=== PATIENT | female | born 1985 | race Caucasian/White ===

== ENCOUNTER 2017-03-28 06:09 | Inpatient (IN) | payer BC, OTHER ==
[~2017-03-28 06:09] MED LIST: Acetaminophen 500 MG TAB PO PRN; Carboprost 250 MCG/ML AMP IM PRN; Ibuprofen 800 MG TAB PO PRN; LR / Pitocin 40 units/1000 ml 1,000 ML IV PRN; LR 500 ML/Oxytocin 10 units 500 ML IV SCH; Lidocaine 1% (PF) 30 ML VIAL SC PRN; Misoprostol 200 MCG TAB PR PRN; Ondansetron HCl/PF 4 MG/2 ML Vial IVP PRN; Promethazine HCl 25 MG/ML VIAL IM PRN
[2017-03-28 06:47] VITALS: BMI 35.9
[2017-03-28] MEDS: Lactated Ringer's 1,000 ML IV SCH ×3 (06:55→08:53)
[2017-03-28 07:17] LABS: Hematocrit 32.6 % (36.0-47.0); Mean Platelet Volume 7.9 fL (7.4-10.4); Red Blood Cell (RBC) Count 4.27 mill/uL (4.20-5.40); White Blood Cell (WBC) Count 5.7 thou/uL (4.8-10.8)
[2017-03-28] MEDS ORDERED: Fentanyl 4 mcg/Marc 0.1% Cadd 100 ML ONE (07:33)
[2017-03-28] MEDS ORDERED: Ondansetron HCl/PF 4 MG/2 ML Vial IVP PRN (08:22)
[2017-03-28] MEDS ORDERED: Promethazine HCl 25 MG/ML VIAL IM PRN (08:22)
[2017-03-28] MEDS ORDERED: Naloxone HCl 0.4 mg/ml Vial IVP PRN ×2 (08:22)
[2017-03-28] MEDS ORDERED: Lactated Ringer's 500 ML IV PRN (08:22)
[2017-03-28] MEDS ORDERED: Acetaminophen 325 MG TAB PO PRN (08:22)
[2017-03-28] MEDS ORDERED: diphenhydrAMINE 50 MG/ML VIAL IVP PRN (08:22)
[2017-03-28] MEDS ORDERED: Eucerin (Mineral Oil/Petrolatum,White) 30 gm Jar TOP PRN (08:22)
[2017-03-28] MEDS ORDERED: ePHEDrine/0.9% NaCl/PF SYRINGE 50 mg/10 ml SLOW IVP PRN (08:22)
[2017-03-28] MEDS ORDERED: Communication Order-Pharmacy FS SCH (08:30)
[2017-03-28] MEDS ORDERED: Fentanyl 4mcg/Marcaine 0.1% Cassette 100 ML EPIDURAL SCH (08:30)
--- NOTE | 2017-03-28 12:16 | PDOC.OPDEL ---
OB Operative/Delivery Note Delivery Dr/Surgeon: Lalo Pre-Delivery Diagnosis: medically indicated induction Procedure/Post Delivery Dx: spontaneous vaginal delivery Anesthesia: epidural - Findings A Weight: 8 lb 11 oz - 1 min: 8 - 5 min: 9 - Additional Findings/Plan Placenta delivered: spontaneous Repaired Obstetrical Laceration: 2nd degree Estimated blood loss: 250ml Post delivery plan: routine recovery
[2017-03-28] MEDS ORDERED: Bisacodyl 10 MG SUPP PR PRN (12:17)
[2017-03-28] MEDS ORDERED: Lanolin Ointment 7 GM TUBE TOP PRN (12:17)
[2017-03-28] MEDS ORDERED: traMADol HCl 50 MG TAB PO PRN (12:17)
[2017-03-28] MEDS ORDERED: Milk Of Magnesia 30 ML UDCUP PO PRN (12:17)
[2017-03-28] MEDS ORDERED: Adacel (T-DAP) 0.5 ML VIAL IM ONE (12:17)
[2017-03-28] MEDS ORDERED: Benzocaine/Menthol 20-0.5% 60 ML CAN TOP PRN (12:17)
[2017-03-28] MEDS ORDERED: diphenhydrAMINE 25 MG CAP PO PRN (12:17)
[2017-03-28] MEDS ORDERED: Preparation H Ointment 28 GM TUBE PR PRN (12:17)
[2017-03-28] MEDS ORDERED: LR / Pitocin 40 units/1000 ml 1,000 ML IV SCH (12:30)
[2017-03-28] MEDS: Ibuprofen 800 MG TAB PO SCH ×2 (14:24→20:38)
[2017-03-28] MEDS ORDERED: Bupivacaine 0.25% HCL 30 ML VIAL ONE (15:39)
[2017-03-28] MEDS: HYDROcodone/Acetaminophen 5/325 mg Tablet PO PRN (16:55)
[2017-03-28] MEDS: Ferrous Sulfate 325 MG TAB PO SCH (17:38)
[2017-03-28] MEDS: Docusate Calcium (SURFAK) 240 MG CAP PO SCH (20:38)
[2017-03-29] MEDS: HYDROcodone/Acetaminophen 5/325 mg Tablet PO PRN ×3 (05:11→21:31)
[2017-03-29] MEDS: Ibuprofen 800 MG TAB PO SCH ×3 (05:11→21:18)
--- NOTE | 2017-03-29 07:57 | PDOC.PP ---
Post Progress Note Post Day #: 1 PO intake tolerated: yes Flatus: yes Ambulation: yes Vital Signs (12 hours) Temp Pulse Resp BP 03/29/17 04:30 98.4 F 81 18 100/56 L 03/29/17 04:00 97.6 F 80 18 03/29/17 00:00 97.6 F 80 18 03/28/17 22:06 97.6 F 84 18 98/56 L 03/28/17 20:00 97.6 F 84 18 Weight Weight 190 lb Result Diagrams: 03/28/17 06:55 03/28/17 06:55 Additional Labs: Post Labs Hep Bs Antigen Non-Reactive S/CO (NonReactive) 03/28/17 06:55 pre ac glucose 82-107. - Assessment/Plan post day 1. Glycemic control adequate without meds. baby doing well. Perineal pain improved.mDesires discharge this PM. Has f/u in 6 weeks. Will check blood glucose prn at home.
[2017-03-29] MEDS: Prenatal Vitamin 1 TAB PO SCH (08:17)
[2017-03-29] MEDS: Docusate Calcium (SURFAK) 240 MG CAP PO SCH ×2 (08:17→21:18)
[2017-03-29] MEDS: Ferrous Sulfate 325 MG TAB PO SCH ×2 (08:18→17:05)
[2017-03-30] MEDS: Ibuprofen 800 MG TAB PO SCH (05:52)
[2017-03-30] MEDS: HYDROcodone/Acetaminophen 5/325 mg Tablet PO PRN ×2 (06:45→10:45)
[2017-03-30 08:03] VITALS: BP 104/61; TEMP 97.9
[2017-03-30] MEDS: Prenatal Vitamin 1 TAB PO SCH (09:12)
[2017-03-30] MEDS: Docusate Calcium (SURFAK) 240 MG CAP PO SCH (09:13)
[2017-03-30] MEDS: Ferrous Sulfate 325 MG TAB PO SCH (09:13)
--- NOTE | 2017-03-30 10:50 | PDOC.PP ---
Post Progress Note Post Day #: 2 Subjective: Baby doing well. ready for discharge. Vital Signs (12 hours) Temp Pulse Resp BP 03/30/17 08:01 97.9 F 103 H 20 104/61 03/30/17 07:52 97.9 F 103 H 20 Weight Weight 190 lb - Physical Examination General: NAD Cardiovascular: no m/r/g, RRR Respiratory: clear to auscultation bilaterally, non-labored breathing Abdominal: + bowel sounds, lochia, no distention, appropriately TTP Result Diagrams: 03/28/17 06:55 03/28/17 06:55 Additional Labs: Post Labs Hep Bs Antigen Non-Reactive S/CO (NonReactive) 03/28/17 06:55 - Assessment/Plan d/c home. sitz bath for perineal pain and analgesics. f/u 6 weeks
== END 2017-03-30 10:53 | disposition home or self-care (01) | DRG 775 ==
LOC: L&D 06:09 → 3SW 14:53 → EDSTATUS 04-07 13:40
PROVIDERS: ADMIT Obstetrics & Gynecology; ATTEND Obstetrics & Gynecology
PROC: 10E0XZZ Delivery of Products of Conception, External Approach (ICD-10-PCS; principal; 2017-03-28)
PROC: 0KQM0ZZ Repair Perineum Muscle, Open Approach (ICD-10-PCS; 2017-03-28)
PROC: 10907ZC Drainage of Amniotic Fluid, Therapeutic from Products of Conception, Via Natural or Artificial Opening (ICD-10-PCS; 2017-03-28)
PROC: 0W8NXZZ Division of Female Perineum, External Approach (ICD-10-PCS; 2017-03-28)
PROC: 3E033VJ Introduction of Other Hormone into Peripheral Vein, Percutaneous Approach (ICD-10-PCS; 2017-03-28)
DX: O24.424 Gestational diabetes mellitus in childbirth, insulin controlled (principal); O36.63X0 Maternal care for excessive fetal growth, third trimester, not applicable or unspecified; Z37.0 Single live birth; Z3A.38 38 weeks gestation of pregnancy; Z67.10 Type A blood, Rh positive; O70.1 Second degree perineal laceration during delivery
CPT/HCPCS: 36416; 82947; 85027; 86780; 87340; J2001; J2405; J7120; S0020

== ENCOUNTER 2019-11-09 19:09 | Emergency (ER) | payer BC, OTHER ==
[2019-11-09 19:45] LABS: #Eosinphils 0.2 thou/uL (0.0-0.7); #Lymphocytes 2.1 thou/uL (1.20-3.40); #Monocytes 0.5 thou/uL (0.11-0.59); #Neutrophils 3.9 thou/uL (1.40-6.50); %Basophils 0.6 % (0.0-1.0); %Eosinophils 3.1 % (0.0-10.0); %Monocytes 7.7 % (0.0-10.0); %Neutrophils 57.7 % (42.0-75.0); Hemoglobin 15.5 g/dL (12.0-16.0); Mean Corpuscular HGB CONC 34.8 g/dL (32.0-36.0); Mean Corpuscular Hemoglobin 29.4 pg (27.0-31.0); Mean Corpuscular Volume 84.5 fL (78.0-98.0); Platelet Count 239 thou/uL (130-400); RBC Distribution Width 11.9 % (11.5-14.5); Red Blood Cell (RBC) Count 5.27 mill/uL (4.20-5.40); White Blood Cell (WBC) Count 6.7 thou/uL (4.8-10.8)
--- NOTE | 2019-11-09 19:46 | RAD ---
RADIOGRAPH CHEST 1 VIEW: DATE: 11/09/2019 HISTORY: 34-year-old female with chest pain and dyspnea FINDINGS: There are no airspace densities, pulmonary edema, pneumothorax, or cardiomegaly. The lateral costophr enic angles are sharp. Right hemidiaphragm is elevated. IMPRESSION: 1. Elevated right hemidiaphragm 2. Otherwise negative
[2019-11-09 20:07] LABS: ALT (SGPT) 45 U/L (8-55); AST (SGOT) 31 U/L (5-34); Albumin 4.7 g/dL (3.5-5.0); Alkaline Phosphatase 82 U/L (40-110); Anion Gap 15 mmol/L (10-20); BUN (Urea Nitrogen) 17 mg/dL (7.0-18.7); Bilirubin, Total 0.2 mg/dL (0.2-1.2); CK (CPK) 89 U/L (29-168); Calc. Creatinine Clearance 0 mL/min (70-130); Calcium 9.5 mg/dL (7.8-10.44); Carbon Dioxide 24 mmol/L (22-29); Chloride 103 mmol/L (98-107); Estimated GFR-MDRD 83; Globulin 3.4 g/dL (2.4-3.5); Glucose 104 mg/dL (70-105); Protein, Total 8.1 g/dL (6.0-8.3); Sodium 138 mmol/L (136-145)
== END 2019-11-09 21:23 | disposition home or self-care (01) ==
LOC: ERS 19:09
DX: R07.9 Chest pain, unspecified (principal); F98.8 Other specified behavioral and emotional disorders with onset usually occurring in childhood and adolescence; F41.9 Anxiety disorder, unspecified; F17.210 Nicotine dependence, cigarettes, uncomplicated; Z79.899 Other long term (current) drug therapy
CPT/HCPCS: 71045; 80053; 82550; 84484; 85025; 85379; 93005

== ENCOUNTER 2020-08-09 00:29 | Emergency (ER) | payer OTHER ==
[2020-08-09 01:31] LABS: BHCG - Serum Negative (NEGATIVE); Pregs Control Background? CLEAR/WHITE (CLR/WHITE); Pregs Control Bar Appear? YES (CONTROL BAR)
[2020-08-09 01:38] LABS: #Eosinphils 0.1 thou/uL (0.0-0.7); #Lymphocytes 2.2 thou/uL (1.20-3.40); #Monocytes 0.6 thou/uL (0.11-0.59); #Neutrophils 3.5 thou/uL (1.40-6.50); %Basophils 0.8 % (0.0-1.0); %Eosinophils 1.7 % (0.0-10.0); %Lymphocytes 34.3 % (21.0-51.0); %Monocytes 8.9 % (0.0-10.0); %Neutrophils 54.3 % (42.0-75.0); Hemoglobin 13.5 g/dL (12.0-16.0); Mean Corpuscular HGB CONC 34.3 g/dL (32.0-36.0); Mean Corpuscular Hemoglobin 30.6 pg (27.0-31.0); Mean Corpuscular Volume 89.2 fL (78.0-98.0); Mean Platelet Volume 7.3 fL (7.4-10.4); Platelet Count 270 thou/uL (130-400); RBC Distribution Width 11.7 % (11.5-14.5); White Blood Cell (WBC) Count 6.4 thou/uL (4.8-10.8)
[2020-08-09 01:59] LABS: ALT (SGPT) 27 U/L (8-55); AST (SGOT) 21 U/L (5-34); Alkaline Phosphatase 86 U/L (40-110); Anion Gap 14 mmol/L (10-20); BUN (Urea Nitrogen) 13 mg/dL (7.0-18.7); Bilirubin, Total 0.3 mg/dL (0.2-1.2); Calc. Creatinine Clearance 0 mL/min (70-130); Calcium 8.8 mg/dL (7.8-10.44); Carbon Dioxide 25 mmol/L (22-29); Chloride 105 mmol/L (98-107); Globulin 2.7 g/dL (2.4-3.5); Glucose 100 mg/dL (70-105); Potassium 4.3 mmol/L (3.5-5.1); Protein, Total 6.7 g/dL (6.0-8.3); Sodium 140 mmol/L (136-145)
[2020-08-09] MEDS ORDERED: Iopamidol-370 76% 500 ML 1 ML ONE (08:58)
== END 2020-08-09 05:43 | disposition home or self-care (01) ==
LOC: ERS 00:29
DX: R00.2 Palpitations (principal); R06.00 Dyspnea, unspecified; F17.210 Nicotine dependence, cigarettes, uncomplicated; Z79.899 Other long term (current) drug therapy
CPT/HCPCS: 36415; 71045; 71275; 80053; 84484; 84703; 85025; 85379; 93005; Q9967